=== PATIENT | female | born 1965 | race Caucasian/White ===

== ENCOUNTER 2024-09-11 11:55 | Emergency (ER) | payer MEDICAID, SELFPAY ==
[2024-09-11 12:33] VITALS: BP 132/73; PULSE 95; RESP 19; TEMP 36.9; O2SAT 97; BMI 33.4
--- NOTE | 2024-09-11 12:56 | XR_ITS ---
Examination: Lumbar spine 3 views Technique: AP lateral coned lateral lower lumbar spine 3 views Exam date and time: September 11, 2024 1306 hrs. Indications: Lower back pain onset today. Findings: Lumbar levoscoliosis 12 degrees No lumbar fracture Grade 1 spondylolisthesis L5 on S1 Diffuse lumbar degenerative disc disease, advanced L5-S1 Impression: No lumbar fracture Grade 1 spondylolisthesis L5 on S1 Advanced degenerative disc disease T12-L1, L5-S1
[2024-09-11 14:07] LABS: Collection Type, Urine Clean Catch
[2024-09-11 14:25] LABS: Bilirubin,Urine Negative (Negative); Blood,Urine Negative (Negative); Budding Yeast,Urine Present; Clarity,Urine Clear (Clear/Hazy); Color,Urine Colorless (Lt Yel-Yel); Glucose, Urine 4+ (Negative); Ketones,Urine Negative (Negative); Leukocyte Esterase,Urine Negative (Negative); Nitrite,Urine Negative (Negative); Protein,Urine Negative (Neg - Trace); RBC,Urine 2 /hpf (0-3); Specific Gravity,Urine 1.028 (1.001-1.035); Squamous Epithelial Cell,Urine 1 /hpf (0-5); Urobilinogen,Urine Negative mg/dL (0.0-1.0); WBC,Urine < 1 /hpf (0-5)
--- NOTE | 2024-09-11 15:55 | PD.EDBACK ---
ED Back Injury Pain RME/HPI General Chief Complaint: Back Pain/Injury Stated Complaint: CONSTANT LOWER BACK PAIN X1 DAY Time Seen by Provider: 09/11/24 12:31 Source: patient Arrival date/time: 09/11/24 11:55 This is a 58-year-old female who presented to the emergency department with complaints of lower back pain that radiates into her right glutes. Patient reports having constant pain worsening over the last 3 months. Has not followed up with her PCP regarding this issue. Denies flank pain, dysuria, hematuria no abdominal pain. Denies recent injury. Mode of arrival: ambulatory Related Data Home Medications ?Medication ?Instructions ?Recorded ?Confirmed betamethasone dipropionate 0.05 % 1 applic topical DAILY 07/25/22 07/25/22 topical cream cetirizine 10 mg tablet 1 tab PO DAILY 07/25/22 07/25/22 diclofenac sodium 1 % topical gel 2 g topical 4XD 07/25/22 07/25/22 glipizide 5 mg tablet, extended 2 tab PO DAILY 07/25/22 07/25/22 release 24 hr losartan 100 1 tab PO DAILY 07/25/22 07/28/22 mg-hydrochlorothiazide 12.5 mg tablet simvastatin 20 mg tablet 1 tab PO DAILY 07/25/22 07/25/22 sitagliptin phosphate 50 1 tab PO BID 07/25/22 07/25/22 mg-metformin 1,000 mg tablet (Everumehonorio) Previous Rx's ?Medication ?Instructions ?Recorded albuterol sulfate 90 mcg/actuation 2 puff inhalation Q4H PRN 09/17/20 aerosol inhaler shortness of breath #8.5 grams amoxicillin 875 mg-potassium 1 tab PO BID #20 tabs 11/10/22 clavulanate 125 mg tablet gabapentin 300 mg capsule 300 mg PO Q8H #30 caps 09/11/24 Allergies Allergy/AdvReac Type Severity Reaction Status Date / Time naproxen Allergy Verified 07/28/22 08:41 Review of Systems Review of Systems Systems Reviewed: All systems reviewed, normal except as documented Narrative Review of Systems: Gen: No fever, no chills, no weight loss EYES: No discharge, no visual changes, no pain HEENT: No ear pain, no congestion, no sore throat PULM: No shortness of breath, no cough, no congestion CV: No chest pain, no dyspnea on exertion, no palpitations GI: No nausea, no vomiting, no diarrhea, no pain, no constipation : No frequency, no urgency,? no dysuria Musc/skel: No joint pain, ++back pain Skin: No rash? Neuro: No weakness, no headache ED Exam Narrative Physical exam: General: Sittiing in Exam table in no acute distress, answering questions appropriately HENT: normocephalic, atraumatic, EOMI, PERRLA, moist mucous membranes Chest: chest wall is nontender Cardiac: regular rate and rhythm, normal S1 and S2, no murmurs, rubs, or gallops, capillary refill ?2 seconds Pulmonary: clear to auscultation bilaterally, no wheezing, crackles, or rhonchi Abdominal: active bowel sounds, soft, nontender, nondistended Neuro: A&OX3, CN II-XII intact, sensation grossly intact bilaterally in UE and LE. Skin: no rashes, no ecchymosis Ext: no lower extremity edema, + Paraspinal tenderness bilateral lumbar areas. No cellulitic changes or rashes noted. Course Quality Measures none Orders Category Date Time Status Consult Medical Record Librarians Teacher NOW Care 09/11/24 13:07 Completed XR lumbar spine 2-3V Stat Exams 09/11/24 12:56 Completed Urinalysis Stat Lab 09/11/24 13:49 Completed Vital Signs Vital signs: Vital Signs Temperature 98.5 F 09/11/24 12:33 Pulse Rate 95 09/11/24 12:33 Respiratory Rate 19 09/11/24 12:33 Blood Pressure 132/73 H 09/11/24 12:33 Pulse Oximetry (%) 97 09/11/24 12:33 Oxygen Delivery Method Room Air 09/11/24 12:33 Back Pain / Injury MDM Narrative MDM Narrative:: No fever, weakness, abdominal pain, saddle anesthesia, bowel/bladder incontinence noted. No hx of IVDA. Gait and sensation intact. No signs of emergent pathology at this time. Low suspicion for emergent etiology such as epidural abscess or spinal cord compression/cauda equina. Exam is consistent with musculoskeletal back pain. Dx Advanced degenerative disc disease. Patient advised to follow-up with PCP might need MRI outpatient or physical therapy. Pain medication given and medication sent to pharmacy. Strict ER precautions given. Patient data External records reviewed:: [facility] previous records Clinical information provided by:: patient Social determinants that could affect healthcare access:: none Patient has the following chronic illnesses:: none How is presenting disease/condition affected by chronic disease/condition?: no chronic disease Evaluation data The following diagnostics were reviewed and interpreted by me:: radiology exam(s) Lab and/or radiology exams considered but not ordered:: yes it was considered Interpretation Summary: Examination: Lumbar spine 3 views Technique: AP lateral coned lateral lower lumbar spine 3 views Exam date and time: September 11, 2024 1306 hrs. Indications: Lower back pain onset today. Findings: Lumbar levoscoliosis 12 degrees No lumbar fracture Grade 1 spondylolisthesis L5 on S1 Diffuse lumbar degenerative disc disease, advanced L5-S1 Impression: No lumbar fracture Grade 1 spondylolisthesis L5 on S1 Advanced degenerative disc disease T12-L1, L5-S1 UA Neg for PYuria Medications / Prescriptions Medications or Prescriptions considered but not ordered:: none Medication administrations:: none Consultations Consultation(s) initiated? (list below): No Diagnosis Differential diagnosis back pain/injury: lumbar radiculopathy Most likely diagnosis given after review of the tests above:: Lumbar Radiculopathy Admission Indicated Admission indicated?: not indicated Explain why admission is indicated or not indicated:: none Admission Request Was there a request for admission?: No Disposition Plan Disposition Plan: Discharge Discharge Attestation Discharge Attestation: The patient and all family members were given an opportunity to ask questions and understood the discharge instructions. Discharge instructions specifically effects, indications for sooner follow up or return to the emergency department, and the expected course of current diagnosis. Patient condition: Stable Discharge Plan Plan Patient Disposition: HOME (Self Care) Patient condition on transfer: Stable Prescriptions/Referrals Prescriptions/Med Rec: New gabapentin 300 mg capsule 300 mg PO Q8H Qty: 30 0RF No Action albuterol sulfate 90 mcg/actuation HFA aerosol inhaler 2 puff INH Q4H PRN (Reason: shortness of breath) Qty: 8.5 0RF cetirizine 10 mg tablet 1 tab PO DAILY glipizide 5 mg tablet extended release 24hr 2 tab PO DAILY simvastatin 20 mg tablet 1 tab PO DAILY betamethasone dipropionate 0.05 % cream 1 applic TOPICAL DAILY losartan-hydrochlorothiazide 100-12.5 mg tablet 1 tab PO DAILY Janumet 50-1,000 mg tablet 1 tab PO BID diclofenac sodium 1 % Gel 2 g TOPICAL 4XD amoxicillin-pot clavulanate 875-125 mg tablet 1 tab PO BID Qty: 20 0RF Referrals: Jacquelin Smith FNP [Primary Care Provider] - In 1 week Problem List Clinical Impression: Lumbar radiculopathy Patient/Caregiver Discharge Instructions Discharge Activity: activity as tolerated Education Materials: ED Degenerative Disk Disease Additional Instructions: -You will need to rest and have activities modification avoid heavy lifting twisting motions or prolonged sitting or standing. -Will need to follow-up with your doctor in 2 to 3 days for follow-up care Might need physical therapy Might need referral for MRI outpatient, Diagnostic imaging (like MRI) might be used to assess the extent of the bulging disc, particularly if symptoms worsen or persist. -Medications sent please use as directed Can include ibuprofen, muscle relaxant Lifestyle modifications weight reduction Return to the emergency department this any worsening symptoms change in condition. Print Language: [place]i Stand Alone Forms: Ye[facility] Award Info., Patient Portal Info Letter HEATHER/AMADA Supervising Physician MONICA Supervising Physician: dr Chairez
--- NOTE | 2024-09-11 16:10 | PC.NURSE ---
Pt called from lobby, no answer at this time. Security unsure if pt left AMA
--- NOTE | 2024-09-11 16:15 | PC.NURSE ---
RN attempting to call pt again from lobby at this time; no answer. Pt left AMA.
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
== END 2024-09-11 16:19 | disposition home or self-care (01) ==
PROVIDERS: Nurse Practitioner Primary Care; Emergency Provider Emergency Medicine; PCP Nurse Practitioner Family
DX: M43.17 Spondylolisthesis, lumbosacral region (principal); M51.15 Intervertebral disc disorders with radiculopathy, thoracolumbar region; M51.17 Intervertebral disc disorders with radiculopathy, lumbosacral region
CPT/HCPCS: 72100; 81001; 99283